=== PATIENT | female | born 1960 | race Caucasian/White ===

== ENCOUNTER → 2017-10-05 | Outpatient (CLI) | payer OTHER ==
[~2017-10-05] MED LIST: LIDOCAINE 1% Multi-Dose 20 ML VIAL. INJ; LIDOCAINE 1% Multi-Dose 50 ML VIAL. INJ
== END | disposition home or self-care (01) ==
LOC: US 13:05
DX: E04.1 Nontoxic single thyroid nodule (principal)
CPT/HCPCS: 10022; 60300; 76942; 88173; 88305

== ENCOUNTER 2019-03-20 14:32 | Emergency (ER) | payer OTHER | END 2019-03-20 15:25 | disposition left against medical advice (07) | LOC: ER 14:32 | DX: R06.02 Shortness of breath (principal); Z53.21 Procedure and treatment not carried out due to patient leaving prior to being seen by health care provider ==